=== PATIENT | female | born 1965 | race Caucasian/White ===

== ENCOUNTER 2020-04-29 05:14 | Inpatient (IN) ==
--- NOTE | 2020-04-01 11:32 | PAT Medication Instructions ---
Medication Instructions Date of Service April 01, 2020 Home Medications Control 1 tab PO DAILY aspirin [Aspirin Low-Strength] 81 mg PO QAM buprenorphine HCl 8 mg SUBLINGUAL TID cholecalciferol (vitamin D3) [Vitamin D3] 2,000 unit PO QAM duloxetine [Cymbalta] 60 mg PO QAM furosemide [Lasix] 20 - 40 mg PO DAILY PRN gabapentin 300 mg PO QID hydrochlorothiazide 25 mg PO QAM lisinopril 40 mg PO QAM methocarbamol [Robaxin] 750 mg PO QID PRN omeprazole 20 mg PO QAM potassium chloride 20 meq PO BID Continue as directed Control 1 tab PO DAILY (unless surgeon direct otherwise) buprenorphine HCl 8 mg SUBLINGUAL TID DO NOT take the morning of surgery cholecalciferol (vitamin D3) [Vitamin D3] 2,000 unit PO QAM furosemide [Lasix] 20 - 40 mg PO DAILY PRN hydrochlorothiazide 25 mg PO QAM lisinopril 40 mg PO QAM methocarbamol [Robaxin] 750 mg PO QID PRN potassium chloride 20 meq PO BID Take morning of surgery With a small sip of water, OTHERWISE NOTHING TO EAT OR DRINK AFTER MIDNIGHT: aspirin [Aspirin Low-Strength] 81 mg PO QAM duloxetine [Cymbalta] 60 mg PO QAM gabapentin 300 mg PO QID omeprazole 20 mg PO QAM Take evening before surgery furosemide [Lasix] 20 - 40 mg PO DAILY PRN (if needed) gabapentin 300 mg PO QID methocarbamol [Robaxin] 750 mg PO QID PRN (if needed) potassium chloride 20 meq PO BID Other Notes If you have any questions please call us at [phone] or [phone] or [phone] or [phone]
--- NOTE | 2020-04-03 13:07 | Anesthesiology Consultation ---
Date of Service April 03, 2020 Assessment & Plan (1) Encounter for pre-operative examination: - Preop CXR: Preop CXR report notes "2 cm right paramediastinal asymmetric density which projects over the medial right clavicular head. This may be calcified or represent a bone lesion. A pulmonary nodule is considered less likely but cannot be excluded. A chest CT is recommended. No acute cardiopulmonary findings." Awaiting response from PCP as well as surgeon-ordered PCP clearance. - Per assessment on 04/03: Travel screen- Lives in [place]. Uses PPE. No known COVID-19 positive contacts or current COVID-19 related symptoms. Surgeon arranging preop COVID testing. Awaiting results. - Check test AM DOS - Hx PONV: "severe"/improvement with scope patch in the past. Will order scope patch for AM DOS. - General anesthesia: patient concerned regarding SAB (hx back polly geries/hardware/issues). Discussed GA vs. SAB. Patient feels that she would prefer GA with PNB at this point but will discuss further AM DOS. Chart Review Chart Review: Patient seen in Pre Admission Testing Teaching & Discussion Pre-Anesthesia Teaching/Discussion Notes: Instructed NPO after midnight before surgery,except medications with 15 cc of water. Medication instructions provided according to the PAT guidelines. History Surgery Operation Date: 04/29/20 11:45 Proposed Procedures p Right Total Knee Arthroplasty - Ruel Posada MD Height/Weight Height: 5 ft 4 in Weight: 91.8 kg Allergies Allergy/AdvReac Type Severity Reaction Status Date / Time Penicillins Allergy Severe Anaphylaxis Verified 03/12/20 16:06 Medications Home Medications Medication Instructions Recorded Confirmed Last Taken Control 1 tab PO DAILY 03/12/20 03/12/20 Unknown aspirin [Aspirin Low-Strength] 81 mg PO QAM 03/12/20 03/12/20 Unknown buprenorphine HCl 8 mg SUBLINGUAL TID 03/12/20 03/12/20 Unknown cholecalciferol (vitamin D3) 2,000 unit PO QAM 03/12/20 03/12/20 Unknown [Vitamin D3] duloxetine [Cymbalta] 60 mg PO QAM 03/12/20 03/12/20 Unknown furosemide [Lasix] 20 - 40 mg PO DAILY PRN 03/12/20 03/12/20 Unknown gabapentin 300 mg PO QID 03/12/20 03/12/20 Unknown hydrochlorothiazide 25 mg PO QAM 03/12/20 03/12/20 Unknown lisinopril 40 mg PO QAM 03/12/20 03/12/20 Unknown methocarbamol [Robaxin] 750 mg PO QID PRN 03/12/20 03/12/20 Unknown omeprazole 20 mg PO QAM 03/12/20 03/12/20 Unknown potassium chloride 20 meq PO BID 03/12/20 03/12/20 Unknown Past Medical History Medical History (Updated 04/05/20 @ 08:13 by Lance Serna) Chronic back pain Degenerative disc disease DVT (deep venous thrombosis) remote hx at age 18 after traumatic injury Fibromyalgia GERD (gastroesophageal reflux disease) Hypertension Obesity Osteoarthritis Peptic ulcer disease hx Peripheral neuropathy Exercise / Class Metabolic Activity II 4-5 Yardwork/Stairs/Walk up hill Past Surgical History Surgical History History of adenoidectomy History of breast augmentation History of knee surgery right knee reconstruction History of open reduction and internal fixation (ORIF) procedure right tibia History of tonsillectomy S/P bunionectomy left S/P cervical spinal fusion ACDF (unsure of levels, possibly C3-C6), mild ROM limitations (specifically flexion) S/P foot surgery, left fusion with hardware (for foot fracture) during the bunionectomy surgery S/P foot surgery, left to repair a Myles Fracture with various hardware S/P foot surgery, right Pes planus repair (+ hardware) S/P lumbar spinal fusion Past Anesthesia History No Hx of Anesthesia Complications Sister: post-op BP issues, no similar issues for patient History of PONV History of PONV ("severe"- some improvement with scope patch) and Hx of Motion Sickness Social History Smoking Status: Current every day smoker tobacco type: cigarettes Smoking cigarettes per day: 10 (intermittent tobacco use x 4 years) Do You Dip or Chew Tobacco: No Hx Alcohol Use: No Hx Substance Use: No substance use type: does not use Review of Systems Patient denies chest pain, shortness of breath, dyspnea on exertion, fevers, chills, cough, wheezing, palpitations. Physical Exam Vital Signs VITALS BP 98/64 P 91 TEMP 98.5 SP02 98%RA RESP 16 PHYSICAL Decreased cervical extension s/p cervical fusion Full TMJ range of motion. TMD 3 finger breaths Mallampati Score 1 Dentition: lower partial, several missing upper teeth including left side, left side tooth loose (poor dentition) Lungs: clear throughout to auscultation Cardiac: regular rate and rhythm, no murmurs noted Spine: normal Carotid arteries: negative bruit Extremities: no edema Testing Laboratory Results 04/03/20 14:02 04/03/20 14:02 PT 10.1 Seconds (9.0-12.0) 04/03/20 14:02 INR 1.0 (0.9-1.1) 04/03/20 14:02 APTT 31.0 Seconds (21.0-31.0) 04/03/20 14:02 Hemoglobin A1c 6.1 % (4.5-5.6) H 04/03/20 14:02 Urine Color Yellow 04/03/20 14:02 Urine Appearance Clear (Clear) 04/03/20 14:02 Urine pH 6.5 (4.5-7.5) 04/03/20 14:02 Ur Specific [place] 1.014 (1.000-1.030) 04/03/20 14:02 Urine Protein Negative (Negative) 04/03/20 14:02 Urine Glucose (UA) Negative (Negative) 04/03/20 14:02 Urine Ketones Negative (Negative) 04/03/20 14:02 Urine Nitrite Negative (Negative) 04/03/20 14:02 Ur Leukocyte Esterase Negative (Negative) 04/03/20 14:02 Urine WBC (Auto) 1-5 /hpf (0-5) 04/03/20 14:02 Urine RBC (Auto) 5-10 /hpf (0-4) H 04/03/20 14:02 U Hyaline Cast (Auto) 1-5 /lpf (0-5) 04/03/20 14:02 U Epithel Cells (Auto) 10-20 /lpf (0-5) H 04/03/20 14:02 Urine Bacteria (Auto) Negative (Negative) 04/03/20 14:02 Blood Type O Positive 04/03/20 14:02 Antibody Screen NEGATIVE 04/03/20 14:02 Electrocardiogram Date: 04/03/20 Findings: + NSR @ (83) Chest X-Ray Date: 04/03/20 2 cm right paramediastinal asymmetric density which projects over the medial right clavicular head. This may be calcified or represent a bone lesion. A pulmonary nodule is considered less likely but cannot be excluded. A chest CT is recommended. No acute cardiopulmonary findings.
--- NOTE | 2020-04-03 14:35 | XRay Report ---
XR chest Pre-admission PA/Lat CLINICAL HISTORY: Preoperative evaluation. COMPARISON STUDY: None. FINDINGS: Lung volumes are normal. No consolidation is identified. Note is made of a 2 cm right yelena ediastinal asymmetric density which projects over the medial right clavicle. This may be calcified. T here is no pneumothorax or pleural effusion. Cardiac size is normal. Mediastinal contours are normal. There is no evidence for pulmonary edema. Incidental note is made of postoperative findings within t he cervical spine. IMPRESSION: 1. 2 cm right paramediastinal asymmetric density which projects over the medial right clavicular head . This may be calcified or represent a bone lesion. A pulmonary nodule is considered less likely but cannot be excluded. A chest CT is recommended. 2. No acute cardiopulmonary findings. ACT 112: Positive. There are findings on this exam that require communication between the performing entity and the patient following Patient Test Result Information Act ([place] Act 112) guidelines. Electronically signed by: Pipo Khan M.D. 04/03/2020 2:34 PM
[2020-04-03 15:22] LABS: Basophils # (auto) 0.04 K/uL (0-0.2); Basophils % (auto) 0.5 %; Eosinophils % (auto) 2.3 %; Hematocrit (blood only) 40.2 % (37-47); Hemoglobin 13.4 g/dL (12.0-16.0); Immature Granulocytes # (auto) 0.01 K/uL (0.00-0.02); Immature Granulocytes % (auto) 0.1 %; Lymphocytes # (auto) 2.87 K/uL (1.2-3.4); Lymphocytes % (auto) 32.9 %; Mean Corpuscular Hemoglobin 30.2 pg (25-34); Mean Corpuscular Hgb Conc 33.3 g/dL (32-36); Mean Corpuscular Volume 90.7 fL (80-100); Mean Platelet Volume 10.3 fL (7.4-10.4); Monocytes # (auto) 0.44 K/uL (0.11-0.59); Neutrophils # (auto) 5.16 K/uL (1.4-6.5); Neutrophils % (auto) 59.2 %; Platelet Count 334 K/uL (130-400); RDW Standard Deviation 46.4 fL (36.4-46.3); Red Blood Count 4.43 M/uL (4.2-5.4); White Blood Count 8.72 K/uL (4.8-10.8)
[2020-04-03 15:24] LABS: Albumin Level 4.1 gm/dl (3.4-5.0); BUN Creatinine Ratio 16.2 (10-20); Calcium 9.1 mg/dl (8.5-10.1); Creatinine Clr Calc Pharmacy 76.9 ml/min; Est GFR (African American) 80.8; Est GFR (Non-African American) 69.8; Potassium 3.4 mmol/L (3.5-5.1)
[2020-04-03 15:29] LABS: Appearance Urine Clear (Clear); Bacteria Urine Automated Negative (Negative); Bilirubin Urine Negative (Negative); Blood Urine Trace (Negative); Color Urine Yellow; Glucose Urine UA Negative (Negative); Ketones Urine Negative (Negative); Leukocyte Esterase Urine Negative (Negative); Nitrite Urine Negative (Negative); Protein Urine Negative (Negative); Specific Gravity Urine 1.014 (1.000-1.030); Urobilinogen Urine Negative (Negative); pH Urine 6.5 (4.5-7.5)
[2020-04-03 15:30] LABS: Partial Thromboplastin Ratio 1.1; Prothrombin Time 10.1 Seconds (9.0-12.0)
[2020-04-04 06:18] LABS: Estimated Average Glucose 128 mg/dl; Hemoglobin A1C 6.1 % (4.5-5.6)
--- NOTE | 2020-04-04 11:00 | Electrocardiogram Report ---
Test Reason : Blood Pressure : / mmHG Vent. Rate : 083 BPM Atrial Rate : 083 BPM P-R Int : 146 ms QRS Dur : 082 ms QT Int : 360 ms P-R-T Axes : 075 080 066 degrees QTc Int : 423 ms Normal sinus rhythm Normal ECG No previous ECGs available Confirmed by Max Howard ([id number]) on 04/04/2020 10:59:41 AM Referred By: Ruel Posada Confirmed By:Blayne Howard
--- NOTE | 2020-04-05 08:18 | History & Physical Report ---
Date of Service April 05, 2020 Assessment & Plan (1) Primary osteoarthritis of right knee: Patient with severe endstage osteoarthritis right knee. Treatment options discussed. She has failed conservative measures as above. She has significant bone loss and at risk for further bone loss with any delay in surgical intervention. Risks, benefits and alternatives to surgery including but not limited to infection, DVT, pain, stiffness, need for revision surgery, damage to blood vessels, damage to nerves, PE, , were discussed with the patient and they wish to proceed. Plan will be for right total knee arthroplasty at [facility] on 04/29/[address] Posada. She may need stabilized polyethylene component to deal with chronic MCL laxity and a stemmed tibial component to help with stability. She is on chronic pain medication but is weaning off of her buprenorphine and orthopedics will manage her post operative pain medication. Will plan on aspirin 81mg BID x 1 mo post operatively for DVT prophylaxis. Will plan on home health PT post discharge. All questions answered. She will follow up post operatively. History of Present Illness Chief Complaint: Right knee pain Primary Care Provider: NO PCP 54yo female with PMHx significant for HTN, GERD, every day smoker, and chronic pain on chronic narcotic pain medication who presents with longstanding right knee pain and severe osteoarthritis. Pain is interfering with her ability to carry out daily activities. She has difficulty ambulating and is falling due to her knee pain. She has failed conservative measures including oral and topical NSAIDs, viscoelastic injections, and cortisone injections, knee bracing, and therapy. She would like to proceed with knee replacement. Patient denies he adaches, sweats, fevers, chills, double vision, blurred vision, cough, sore throat, dysphagia, chest pain, sob, wheezing, n/v/d/c, numbness, tingling, fatigue, urinary symptoms, mood disorders. ROS positive for right knee pain and stiffness. Allergies Allergy/AdvReac Type Severity Reaction Status Date / Time Penicillins Allergy Severe Anaphylaxis Verified 03/12/20 16:06 Home Medications Medication Instructions Recorded Confirmed Type Control 1 tab PO DAILY 03/12/20 03/12/20 History aspirin [Aspirin Low-Strength] 81 mg PO QAM 03/12/20 03/12/20 History buprenorphine HCl 8 mg SUBLINGUAL TID 03/12/20 03/12/20 History cholecalciferol (vitamin D3) 2,000 unit PO QAM 03/12/20 03/12/20 History [Vitamin D3] duloxetine [Cymbalta] 60 mg PO QAM 03/12/20 03/12/20 History furosemide [Lasix] 20 - 40 mg PO DAILY PRN 03/12/20 03/12/20 History gabapentin 300 mg PO QID 03/12/20 03/12/20 History hydrochlorothiazide 25 mg PO QAM 03/12/20 03/12/20 History lisinopril 40 mg PO QAM 03/12/20 03/12/20 History methocarbamol [Robaxin] 750 mg PO QID PRN 03/12/20 03/12/20 History omeprazole 20 mg PO QAM 03/12/20 03/12/20 History potassium chloride 20 meq PO BID 03/12/20 03/12/20 History Past Med/Surg History Medical History (Updated 04/05/20 @ 08:13 by Lance Serna) Chronic back pain Degenerative disc disease DVT (deep venous thrombosis) remote hx at age 18 after traumatic injury Fibromyalgia GERD (gastroesophageal reflux disease) Hypertension Obesity Osteoarthritis Peptic ulcer disease hx Peripheral neuropathy Surgical History History of adenoidectomy History of breast augmentation History of knee surgery right knee reconstruction History of open reduction and internal fixation (ORIF) procedure right tibia History of tonsillectomy S/P bunionectomy left S/P cervical spinal fusion ACDF (unsure of levels, possibly C3-C6), mild ROM limitations (specifically flexion) S/P foot surgery, left fusion with hardware (for foot fracture) during the bunionectomy surgery S/P foot surgery, left to repair a Myles Fracture with various hardware S/P foot surgery, right Pes planus repair (+ hardware) S/P lumbar spinal fusion Social History Smoking Status: Current every day smoker Cigarettes Per Day: 10 (intermittent tobacco use x 4 years); Second Hand Exposure: Yes; Do You Dip or Chew Tobacco: No; Tobacco Cessation Education Requested by Patient: No Hx Alcohol Use: No Hx Substance Use: No Preferred Language: Cypriot Communication Ability: Effective Turnaround Engineer Required: No Beliefs That Will Affect Care: None Current Living Situation: Spouse Other Information That Helps Us Care for You: No Feels Safe at Home: Yes Safety Concerns: Feels Safe At This Time Assistive Devices: Cane and Glasses Assistive Devices Comment: lower partial Review of Systems All systems reviewed & are unremarkable except as noted in HPI & below Physical Exam Constitutional: well developed and well nourished; no acute distress Eyes: PERRL, conjunctivae normal, anicteric sclerae ENMT: external ear and nose normal, oropharynx normal Neck: trachea midline, no thyromegaly Respiratory: normal respiratory effort, lungs clear to auscultation Cardiovascular: RRR, no murmur, no edema Musculoskeletal: Right knee: Valgus alignment with tenderness lateral joint line, mild effusion. Positive valgus stress, positive Saud's, positive tiana's. ROM 0-90 degrees. Varus stress does correct deformity. Crepitation noted with ROM. Skin: no rashes, warm and dry Neurologic: patellar DTR's 2+ bilat, sensation intact Psychiatric: A+Ox3, euthymic affect Results & Data ([place]) Laboratory Results Lab Results 04/03/20 04/03/20 04/03/20 Range/Units 14:02 14:02 14:02 WBC 8.72 (4.8-10.8) K/uL RBC 4.43 (4.2-5.4) M/uL Hgb 13.4 (12.0-16.0) g/dL Hct 40.2 (37-47) % MCV 90.7 (80-100) fL MCH 30.2 (25-34) pg MCHC 33.3 (32-36) g/dL RDW Std Deviation 46.4 H (36.4-46.3) fL RDW Coeff of Tl 14.0 (11.5-14.5) % Plt Count 334 (130-400) K/uL MPV 10.3 (7.4-10.4) fL Immature Gran % (Auto) 0.1 % Neut % (Auto) 59.2 % Lymph % (Auto) 32.9 % [place] % (Auto) 5.0 % Eos % (Auto) 2.3 % Baso % (Auto) 0.5 % Neut # (Auto) 5.16 (1.4-6.5) K/uL Lymph # (Auto) 2.87 (1.2-3.4) K/uL [place] # (Auto) 0.44 (0.11-0.59) K/uL Eos # (Auto) 0.20 (0-0.5) K/uL Baso # (Auto) 0.04 (0-0.2) K/uL Immature Gran # (Auto) 0.01 (0.00-0.02) K/uL PT 10.1 (9.0-12.0) Seconds INR 1.0 (0.9-1.1) APTT 31.0 (21.0-31.0) Seconds PTT Ratio 1.1 Sodium 137 (136-145) mmol/L Potassium 3.4 L (3.5-5.1) mmol/L Chloride 99 (98-107) mmol/L Carbon Dioxide 37 H (21-32) mmol/L Anion Gap 1.0 L (3-11) BUN 15 (7-18) mg/dl Creatinine 0.94 (0.6-1.2) mg/dl Est Cr Clr Drug Dosing 76.9 ml/min Est GFR ( Amer) 80.8 Est GFR (Non-Af Amer) 69.8 BUN/Creatinine Ratio 16.2 (10-20) Glucose 90 (70-99) mg/dl Estimat Average Glucose mg/dl Hemoglobin A1c (4.5-5.6) % Calcium 9.1 (8.5-10.1) mg/dl Albumin 4.1 (3.4-5.0) gm/dl Urine Color Urine Appearance (Clear) Urine pH (4.5-7.5) Ur Specific [place] (1.000-1.030) Urine Protein (Negative) Urine Glucose (UA) (Negative) Urine Ketones (Negative) Urine Blood (Negative) Urine Nitrite (Negative) Urine Bilirubin (Negative) Urine Urobilinogen (Negative) Ur Leukocyte Esterase (Negative) Urine WBC (Auto) (0-5) /hpf Urine RBC (Auto) (0-4) /hpf U Hyaline Cast (Auto) (0-5) /lpf U Epithel Cells (Auto) (0-5) /lpf Urine Bacteria (Auto) (Negative) Blood Type Antibody Screen 04/03/20 04/03/20 04/03/20 Range/Units 14:02 14:02 14:02 WBC (4.8-10.8) K/uL RBC (4.2-5.4) M/uL Hgb (12.0-16.0) g/dL Hct (37-47) % MCV (80-100) fL MCH (25-34) pg MCHC (32-36) g/dL RDW Std Deviation (36.4-46.3) fL RDW Coeff of Tl (11.5-14.5) % Plt Count (130-400) K/uL MPV (7.4-10.4) fL Immature Gran % (Auto) % Neut % (Auto) % Lymph % (Auto) % [place] % (Auto) % Eos % (Auto) % Baso % (Auto) % Neut # (Auto) (1.4-6.5) K/uL Lymph # (Auto) (1.2-3.4) K/uL [place] # (Auto) (0.11-0.59) K/uL Eos # (Auto) (0-0.5) K/uL Baso # (Auto) (0-0.2) K/uL Immature Gran # (Auto) (0.00-0.02) K/uL PT (9.0-12.0) Seconds INR (0.9-1.1) APTT (21.0-31.0) Seconds PTT Ratio Sodium (136-145) mmol/L Potassium (3.5-5.1) mmol/L Chloride (98-107) mmol/L Carbon Dioxide (21-32) mmol/L Anion Gap (3-11) BUN (7-18) mg/dl Creatinine (0.6-1.2) mg/dl Est Cr Clr Drug Dosing ml/min Est GFR ( Amer) Est GFR (Non-Af Amer) BUN/Creatinine Ratio (10-20) Glucose (70-99) mg/dl Estimat Average Glucose 128 mg/dl Hemoglobin A1c 6.1 H (4.5-5.6) % Calcium (8.5-10.1) mg/dl Albumin (3.4-5.0) gm/dl Urine Color Yellow Urine Appearance Clear (Clear) Urine pH 6.5 (4.5-7.5) Ur Specific [place] 1.014 (1.000-1.030) Urine Protein Negative (Negative) Urine Glucose (UA) Negative (Negative) Urine Ketones Negative (Negative) Urine Blood Trace H (Negative) Urine Nitrite Negative (Negative) Urine Bilirubin Negative (Negative) Urine Urobilinogen Negative (Negative) Ur Leukocyte Esterase Negative (Negative) Urine WBC (Auto) 1-5 (0-5) /hpf Urine RBC (Auto) 5-10 H (0-4) /hpf U Hyaline Cast (Auto) 1-5 (0-5) /lpf U Epithel Cells (Auto) 10-20 H (0-5) /lpf Urine Bacteria (Auto) Negative (Negative) Blood Type O Positive Antibody Screen NEGATIVE Diagnostic Findings Right knee radiographs: Bone on bone lateral compartment with significant bone loss. Has osteophyte formation lateral tibial plateau and lateral femoral condyle with subchondral sclerosis, moderate degenerative changes patellofemoral compartment.
[2020-04-29] MEDS ORDERED: FAMOTIDINE 20 MG TAB PO SCH (06:00)
[2020-04-29] MEDS ORDERED: dexAMETHasone 4 MG TAB PO SCH (06:00)
[2020-04-29] MEDS ORDERED: ACETAMINOPHEN 500 MG TAB PO SCH (06:00)
[2020-04-29] MEDS ORDERED: METOCLOPRAMIDE HCL 10 MG TABLET PO SCH (06:00)
[2020-04-29] MEDS ORDERED: CeleBREX 200 MG CAP PO SCH (06:00)
[2020-04-29] MEDS ORDERED: LR 500ML BOLUS, THEN 15ML/HR IV SCH (06:00)
[2020-04-29] MEDS ORDERED: GABAPENTIN 900 MG DOSE PO SCH (06:00)
[2020-04-29] MEDS ORDERED: VANCOMYCIN HCL 1,500 MG in SODIUM CHLORIDE 0.9% 500 ML IV SCH ×2 (06:00→18:00)
[2020-04-29] MEDS ORDERED: ROPIVACAINE 0.5% HCL/PF 150 MG, BUPIVACAINE 0.75% MPF 20 ML, EPINEPHrine 30MG/30ML (OR ... INSTIL SCH (06:00)
[2020-04-29] MEDS ORDERED: ROPIVACAINE 0.5% 5 MG/ML 30 ML VIAL ONE (06:29)
[2020-04-29] MEDS ORDERED: BUPIVACAINE 0.5 % 5 MG/1 ML PF 10ML VIAL ONE (06:29)
[2020-04-29] MEDS ORDERED: fentaNYL citrate 100 MCG/2 ML VIAL ONE (06:32)
[2020-04-29] MEDS ORDERED: MIDAZOLAM HCL 1 MG/ML 2ML VIAL ONE ×2 (06:32→07:10)
[2020-04-29] MEDS ORDERED: BACITRACIN INJ 50,000 UNIT VIAL ONE (06:39)
[2020-04-29] MEDS ORDERED: ORTHO JOINT ANESTHETIC ONE (06:39)
[2020-04-29] MEDS ORDERED: ATROPINE SULFATE 0.1 MG/ML 10ML SYR IV PRN (07:01)
[2020-04-29] MEDS ORDERED: PROMETHAZINE HCL 6.25 MG in SODIUM CHLORIDE 0.9% 50 ML IV PRN (07:01)
[2020-04-29] MEDS ORDERED: HYDROmorphone INJ 1 MG/ML SYRINGE IV PRN (07:01)
[2020-04-29] MEDS ORDERED: ONDANSETRON INJ 2 MG/ML 2 ML VIAL IV PRN (07:01)
[2020-04-29] MEDS ORDERED: KETOROLAC 30 MG/ML VIAL IV PRN (07:01)
--- NOTE | 2020-04-29 07:04 | History & Physical Bridge Note ---
Date of Service April 29, 2020 History & Physical Bridge Note I have examined the patient, reviewed the History & Physical and in the interval since the performance of the History & Physical I have noted the following changes of clinical significance: no changes noted
[2020-04-29] MEDS ORDERED: LIDOCAINE HCL 2% 2 ML VIAL/AMP(20MG/ML) INFIL ONE (07:40)
[2020-04-29] MEDS ORDERED: PHENYLEPHRINE 100MCG/ML 5ML SYR ONE (07:42)
[2020-04-29] MEDS ORDERED: ePHEDrine sulfate 50 MG/ML AMP ONE (07:42)
[2020-04-29] MEDS ORDERED: ePHEDrine sulfate 50 MG/ML SYR ONE (07:42)
[2020-04-29] MEDS ORDERED: PHENYLEPHRINE HCL 10 MG/ML VIAL ONE (08:07)
--- NOTE | 2020-04-29 09:40 | Post Operative Brief Note ---
Immediate Post Op Note v1 Date of Surgery April 29, 2020 Pre & Post Diagnosis Operation Date: 04/29/20 07:00 Pre-Op Diagnosis: Unilateral Primary Osteoarthritis, Right Knee Post-Op Diagnosis: Unilateral Primary Osteoarthritis, Right Knee I identified the patient and participated in the time-out.: Yes Procedure Operation Date: 04/29/20 07:00 Actual Procedures p Right Total Knee Arthroplasty(Right), superficial wound VAC- Ruel Posada MD Surgeon Ruel Posada MD Supervisor Paper Coating Daquan HELLER Estimated Blood Loss 10 Findings Consistent with Post-Op Diagnosis Specimens Bone cuts Drains Hemovac Drain (10 fr dual trocar) Anesthesia Type MAC Spinal Regional Complications none Disposition Accompanied Patient To Recovery: No Disposition: Recovery Room Overlapping Procedure I was immediately available: during the entire case.
--- NOTE | 2020-04-29 09:56 | Operative Report ---
Post Operative Report Pre & Post Diagnosis Operation Date: 04/29/20 07:00 Pre-Op Diagnosis: Unilateral Primary Osteoarthritis, Right Knee Post-Op Diagnosis: Unilateral Primary Osteoarthritis, Right Knee I identified the patient and participated in the time-out.: Yes Procedure Operation Date: 04/29/20 07:00 Actual Procedures p Right Total Knee Arthroplasty(Right) ,superficial wound VAC- Ruel Posada MD Surgeon Ruel Posada MD [employer] Daquan EHLLER Estimated Blood Loss 10 Findings Consistent with Post-Op Diagnosis Specimens Bone cuts Drains 2 Hemovac Anesthesia Type MAC Spinal Regional Complications none Disposition Accompanied Patient To Recovery: No Disposition: Recovery Room Indications 54-year-old female with chronic progressive osteoarthritis in her knee. Patient has severe osteoarthritis with marked valgus alignment of her knee [id number] with bone loss in the lateral compartment hypoplastic lateral femoral condyle tricompartmental disease. Old medial longitudinal scar from old surgery. Description of Procedure Patient taken to the operating room the size under MAC spinal regional anesthesia. Patient was placed supine on the operating table. A pneumatic tourniquet was placed about the right upper thigh. The right lower extremity was prepped and draped in sterile fashion. Knee exam demonstrated along medial longitudinal scar a moderately large knee effusion some chronic edema in the calf and leg. Bunion deformity of the foot. Flexion contracture 20 degrees knee flexion to 120 degrees with valgus stress knee collapses into valgus due to bone loss and MCL laxity knee partially correctable to neutral with varus stress. The leg was elevated exsanguinated with an Esmarch bandage and pneumatic tourniquet was raised to 325 millimeters of mercury. Skin incised sharply in longitudinal fashion. Subcutaneous flaps elevated. Incision was made through the medial retinaculum extending up in the mid third of the quadriceps tendon and down to the medial tibial tubercle. Intra-articular findings demonstrated severe tricompartmental osteoarthritis. There was hypoplastic lateral femoral condyle with significant bone loss lateral compartment posterior laterally. The ACL was chronically torn. Patient was [id number] trochlear groove and medially as well. There were circumferential patellar osteophytes.. The Simplilearn triathlon total knee arthroplasty system was used. To expose the knee the infrapatellar fat pad was resected. The meniscal remnants and posterior cruciate ligament were resected. The anterior fat pad over the femur in the area of the anterior flange of the femoral component was resected. Lateral synovial bands release. Large notch osteophytes were resected with a curved osteotome. The femur was exposed. An intramedullary drill hole was made into the canal. A intramedullary flexible guide isidro was placed. Distal femoral cutting guide was adjusted to resect a 6 degree valgus cut with 10 millimeters distal femur resected this resected the bone to the sulcus. The knee was extended and a subperiosteal peel lateral release was performed around the patella. Patella width was measured and width was reproduced using a freehand cut technique and a 31 symmetrical patella component. The 3 drill holes were made and the excess lateral facet was beveled off to prevent any impingement. Attention was taken back to the femur which was exposed with retractors and the femoral sizing guide was pinned in position. The drill holes were placed in 3 of external rotation to match epicondylar axis. Some adjustments were made to the hypoplastic femoral condyle and the epicondylar axis and Whitesides line were marked to get the appropriate alignment of the cutting guide. Femur sized for a 4 posterior stabilized component. The 4-in-1 cutting block was placed and then the anterior posterior and chamfer cuts are made. The tibia was then subluxed. The external tibial cutting guide was just to make a perpendicular cut to the long axis of the tibia at the level of the most deficient bone loss side laterally. A lamina greens cutter was used and the flexion extension gaps were balanced. This required a IT band release off the tibia lateral capsule release and release of the popliteus tendon. All posterior osteophytes removed. All meniscal remnants were resected. The tibia exposed and the trial tibial component size 4 was externally rotated in line with the tibial tubercle and pinned in position. The drill and punch for stem was used. The notch cutting device was centered appropriately and the femoral notch cut was made. The femoral trial was inserted. Trial tibial inserts were placed and size 13 posterior stabilized TS constrained gave balanced ligaments through flexion and extension. Patella tracking was assessed. The patella tracked with some slight liftoff laterally so formal lateral release was performed releasing the lateral retinaculum leaving as much of the synovium intact as possible. Patella tracks centrally at this point.. The trial components were then removed and the orthomix anesthetic cocktail was injected per protocol. The knee was then copiously irrigated with pulsatile lavage antibiotic solution. Final components were then cemented with Simplex cement. Final components were triathlon posterior stabilized size 4 femoral component with femoral distal fixation pegs. Size 4 universal tibial baseplate with a 50 mm length 12 mm diameter cemented stem. The size 413 mm TS tibial polyethylene with metal reinforcement post, 31 x 9 mm symmetrical patella. After the cement cured the Betadine soak was used per protocol. further pulsatile lavage irrigation performed and 2 Hemovac drains were brought out laterally. The quadriceps tendon and medial retinaculum were closed with figure of 8 #1 Vicryl sutures. The knee was taken through full range of motion and the repair was secure. The subcutaneous tissues were closed with 2-0 Vicryl sutures. Skin was closed with leonela. A niall and Acticoat superficial wound VAC was applied. Patient procedure well. Daquan HELLER was my physician assistant maintenance manager who assisted in patient positioning prepping and draping,leg positioning ,soft tissue retraction and instrument management and participated in the closing and will participate in postoperative care of the patient. The patient tolerated the procedure well. I attest to the content of the Intraoperative Record and any orders documented therein. Any exceptions are noted below.
[2020-04-29] MEDS: PHENYLEPHRINE 100MCG/ML 5ML SYR IV PRN ×6 (10:11→11:40)
--- NOTE | 2020-04-29 10:22 | XRay Report ---
XR knee RT 1 or 2V routine HISTORY: 54 years-old Female Surgical Post Op right knee total joint arthroplasty COMPARISON: None TECHNIQUE: 2 views of the right knee FINDINGS: Hinged right knee total joint arthroplasty appears to be in satisfactory alignment. No acute fracture or unexpected opaque foreign body. Anterior midline skin leonela are noted along with expected posts urgical soft tissue swelling and deep tissue air with surgical drainage catheter. IMPRESSION: Right knee total joint arthroplasty with expected postoperative changes. ACT 112: Negative or not required by law. The above report was generated using voice recognition software. It may contain grammatical, syntax o r spelling errors. Electronically signed by: Dom Garcia M.D. 04/29/2020 10:20 AM
[2020-04-29] MEDS: ePHEDrine sulfate 50 MG/ML AMP IV PRN ×5 (10:38→11:30)
[2020-04-29] MEDS ORDERED: VANCOMYCIN CONSULT ACTIVE PRN (12:34)
[2020-04-29] MEDS ORDERED: FUROSEMIDE 20 MG TAB PO PRN (12:34)
--- NOTE | 2020-04-29 13:01 | Anesthesiology Progress Note ---
Date of Service April 29, 2020 Anesthesia Post Procedure Vital Signs Vital Signs: Temp Pulse Pulse Resp BP Pulse Ox 04/29/20 12:15 36.4 C L 94 H 17 94/50 L 98 04/29/20 12:05 97 H 14 93/53 L 98 04/29/20 11:55 91 H 14 93/55 L 97 04/29/20 11:45 90 17 98/53 L 97 04/29/20 11:35 86 17 97/51 L 97 04/29/20 11:25 86 14 90/56 L 97 04/29/20 11:15 88 17 102/55 L 97 04/29/20 11:05 85 17 97/52 L 96 04/29/20 10:55 87 17 94/56 L 95 04/29/20 10:45 86 18 95/53 L 95 04/29/20 10:35 82 15 85/55 L 98 04/29/20 10:25 82 17 89/53 L 98 04/29/20 10:15 82 15 94/59 L 93 04/29/20 10:05 82 15 89/51 L 94 04/29/20 09:55 84 18 102/47 L 100 04/29/20 09:47 36.6 C 89 20 110/64 98 04/29/20 05:52 36.9 C 77 16 116/70 96 Pain Intensity Right Leg: Pain Intensity: 8 Transfer of Care Handoff Completed per policy Notes Mental Status: alert / awake / arousable Patient Amnestic to Procedure: Yes Nausea / Vomiting: adequately controlled Pain: adequately controlled Airway Patency, RR, SpO2: stable & adequate BP & HR: stable & adequate Hydration State: stable & adequate Neuraxial Anesthesia: was administered and sensory block is resolving Anesthetic Complications: no major complications apparent
[2020-04-29] MEDS: GABAPENTIN 300 MG CAP PO SCH ×3 (14:14→21:32)
[2020-04-29] MEDS: ACETAMINOPHEN 500 MG TAB PO SCH ×2 (14:26→21:34)
[2020-04-29] MEDS: SODIUM CHLORIDE 0.9% 1000ML 1,000 ML IV SCH ×2 (14:27→18:46)
[2020-04-29] MEDS: POTASSIUM CHLORIDE CRTAB 20 MEQ TABCR PO SCH ×2 (14:27→21:31)
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
[2020-04-29] MEDS ORDERED: SODIUM CHLORIDE 0.9% 1000ML 500 ML IV ONE (15:52)
[2020-04-29] MEDS: oxyCODONE HCL IR 5 MG TAB (IMMEDIATE RELEASE) PO PRN ×2 (15:57→20:25)
[2020-04-29] MEDS: Scopolamine CHECK PATCH PLACEMENT SCH (15:58)
[2020-04-29 16:08] LABS: Hematocrit (blood only) 29.6 % (37-47); Hemoglobin 9.6 g/dL (12.0-16.0)
[2020-04-29 16:31] LABS: BUN Creatinine Ratio 12.6 (10-20); Calcium 8.7 mg/dl (8.5-10.1); Creatinine Clr Calc Pharmacy 69.5 ml/min; Est GFR (African American) 71.5; Est GFR (Non-African American) 61.7; Potassium 4.1 mmol/L (3.5-5.1)
[2020-04-29] MEDS ORDERED: HYDROmorphone INJ 0.5 MG/0.5 ML SYR IV STA (16:33)
[2020-04-29] MEDS ORDERED: SODIUM CHLORIDE 0.9% 250 ML IV PRN (16:33)
[2020-04-29] MEDS: KETOROLAC 30 MG/ML VIAL IV SCH (18:47)
[2020-04-29] MEDS: HYDROmorphone INJ 0.5 MG/0.5 ML SYR IV PRN (21:27)
[2020-04-29] MEDS: ASPIRIN 81 MG ECTAB PO SCH (21:32)
[2020-04-30] MEDS: KETOROLAC 30 MG/ML VIAL IV SCH ×3 (00:10→12:01)
[2020-04-30] MEDS: Scopolamine CHECK PATCH PLACEMENT SCH ×5 (00:11→22:17)
[2020-04-30] MEDS: oxyCODONE HCL IR 5 MG TAB (IMMEDIATE RELEASE) PO PRN ×4 (01:41→17:06)
[2020-04-30] MEDS: ACETAMINOPHEN 500 MG TAB PO SCH ×3 (05:41→21:49)
[2020-04-30 06:24] LABS: Hematocrit (blood only) 23.1 % (37-47); Hemoglobin 7.5 g/dL (12.0-16.0); Mean Corpuscular Hemoglobin 29.5 pg (25-34); Mean Corpuscular Hgb Conc 32.5 g/dL (32-36); Mean Corpuscular Volume 90.9 fL (80-100); Mean Platelet Volume 9.9 fL (7.4-10.4); Platelet Count 209 K/uL (130-400); RDW Coefficient of Variation 14.1 % (11.5-14.5); RDW Standard Deviation 47.2 fL (36.4-46.3); Red Blood Count 2.54 M/uL (4.2-5.4)
[2020-04-30] MEDS: METHOCARBAMOL 750 MG TABLET PO PRN ×3 (06:24→21:49)
[2020-04-30 06:52] LABS: BUN Creatinine Ratio 18.7 (10-20); Calcium 8.7 mg/dl (8.5-10.1); Creatinine Clr Calc Pharmacy 87.1 ml/min; Est GFR (Non-African American) 81.1; Potassium 4.7 mmol/L (3.5-5.1)
--- NOTE | 2020-04-30 07:30 | Orthopedic Progress Note ---
Date of Service April 30, 2020 Assessment & Plan (1) Primary osteoarthritis of right knee: POD#1 right TKA -PT/OT -Pain management-having a lot of pain. Was on chronic pain medication preop. Will get pain management consult for recommendations for post op pain control. -DVT prophylaxis-ASA 81mg BID, SCDs, TEDs -AM labs-Creatinine at baseline. Hemoglobin 7.5-acute blood loss anemia due to surgical loss and dilutional effect. Transfuse 1 u PRBC. Recheck labs. -D/C planning-home with home health PT when stable, likely tomorrow. Admission and Anticipated Discharge Date Admission Date: April 29, 2020 Subjective POD#1 right TKA. Patient resting in bed, currently comfortable. Having a lot of pain, mostly in calf region. Did have doppler 2 days ago for calf pain, negative for DVT. She denies chest pain, sob, light headedness, dizziness, n/v/d. BP is running low. Review of Systems Review of Systems: All systems reviewed & are unremarkable except as noted in HPI & below Physical Exam Physical Exam: Right leg dressing is c/d/i. ELISHA in place and suctioning, hemovac intact. Toes are mobile with good dorsiflexion. Mild calf tenderness. Distally n/v status and sensation are intact. Constitutional: well developed and well nourished; no acute distress Results & Data ([facility]) Vital Signs (Past 12 Hours) Vital Signs Temp Pulse Resp BP Pulse Ox 04/30/20 03:59 36.7 C 81 16 92/59 L 100 04/29/20 23:36 36.7 C 80 16 91/59 L 100 Laboratory Results H & H 04/03/20 04/29/20 04/30/20 Range/Units 14:02 15:42 05:52 Hgb 13.4 9.6 L 7.5 L (12.0-16.0) g/dL Hct 40.2 29.6 L 23.1 L (37-47) % Coagulation 04/03/20 Range/Units 14:02 INR 1.0 (0.9-1.1)
[2020-04-30] MEDS: CHOLECALCIFEROL 1,000 UNITS 25 MCG TAB PO SCH (08:21)
[2020-04-30] MEDS: DULoxetine HCL 60 MG CAP PO SCH (08:21)
[2020-04-30] MEDS: PANTOprazole 40 MG TAB PO SCH (08:21)
[2020-04-30] MEDS: ASPIRIN 81 MG ECTAB PO SCH ×2 (08:21→20:49)
[2020-04-30] MEDS: POTASSIUM CHLORIDE CRTAB 20 MEQ TABCR PO SCH ×3 (08:22→20:49)
[2020-04-30] MEDS: GABAPENTIN 300 MG CAP PO SCH ×4 (08:22→20:49)
--- NOTE | 2020-04-30 08:31 | Pain Management Consultation ---
Date of Consultation April 30, 2020 Assessment & Plan (1) History of total knee arthroplasty: (2) Primary osteoarthritis of right knee: Present on Admission?: Yes (3) Opioid dependence in controlled environment: Present on Admission?: Yes (4) Chronic pain: * Patient with chronic opiate dependency followed by pain management in [place] with Dr. Gramajo. PDMP was reviewed which revealed chronic pr escribing of buprenorphine 8 mg tablets sublingually #90/month with most recent prescription filled on 03/30/2020. Patient also had prescription filled for oxycodone/acetaminophen 10/325 mg #30 filled on 04/22/2020. Patient was appropriately weaned off of buprenorphine presurgically per her report and transitioned to oxycodone/acetaminophen in which the patient had reported 6 tablets daily. * Would recommend continuing with OxyIR 10 mg every 4 hours as needed upon this admission to assess efficacy/tolerability for discharge planning. Would likely recommend OxyIR 10 mg every 4 hours in the postsurgical timeframe with reevaluation with her outpatient pain management team in 2 weeks, who is re portedly planning to transition her back to buprenorphine. * Would recommend patient have Narcan available upon discharge * Consider addition of stool softener versus MiraLAX * We discussed limited utilization of IV hydromorphone during this admission due to pain not well controlled with OxyIR and she verbalized understanding Thank you for allowing us to participate in the care of Mrs. Toney. Present on Admission?: Yes History of Present Illness Reason for Consultation: Postoperative pain management status post right TKA Requesting Physician: Ruel Posada MD Attending Physician: Ruel Posada MD History of Present Illness Mrs. Toney is a 54-year-old white female who was admitted and underwent a right TKA due to chronic right-sided knee pain and end-stage osteoarthritis yesterday on 04/29/2020. Patient has a longstanding history of multiple orthopedic and cervical/lumbar spine surgeries in her past history and chronic opioid utilization over the past 5-7 years. The patient was reportedly transitioned off of opiates and onto buprenorphine approximately 18-24 months ago. She was utilizing buprenorphine 24 mg daily, which she reported was managing her pain well. She then reportedly weaned off buprenorphine leading up to her current surgery discontinuing the buprenorphine approximately 1 week ago. She was then reportedly started on oxycodone/acetaminophen 10/325 mg reportedly utilizing 6 tablets daily. She reported acute right-sided calf pain the day prior to her surgery which led [place] emergent [place] near [place]. Extensive diagnostic evaluation revealed no evidence of DVT and she went through with her surgery yesterday on 04/29/[address] Posada. Patient is reporting minimal discomfort of the knee at this time with improved range of motion. She continues to have pain in the calf area as her predominant pain generator. Patient reports the pain is aching and occasionally sharp. She is finding oxycodone 10 mg to be moderately effective at "taking the edge off" of her pain. She is reporting tolerating medication without complications. She denies any chronic history of constipation and reported bowel movement the day prior to her surgery. Patient indicates that her outpatient pain management physician has a plan to transition her back to buprenorphine in the postsurgical timeframe, but was recommending her orthopedic surgeon manage her postoperative pain. Patient reports no further constitutional complaints at this time. Pain Assessment Full Body Front + Back: 1. Right calf pain 2. Right knee pain status post TKA Pain scale - at its best (0-10): 4 Pain scale - at its worst (0-10): 8 Allergies Allergy/AdvReac Type Severity Reaction Status Date / Time Penicillins Allergy Severe Anaphylaxis Verified 04/29/20 05:31 Home Medications Medication Instructions Recorded Confirmed Type Control 1 tab PO DAILY 03/12/20 04/29/20 History aspirin [Aspirin Low-Strength] 81 mg PO QAM 03/12/20 04/29/20 History buprenorphine HCl 8 mg SUBLINGUAL TID 03/12/20 04/29/20 History cholecalciferol (vitamin D3) 2,000 unit PO QAM 03/12/20 04/29/20 History [Vitamin D3] duloxetine [Cymbalta] 60 mg PO QAM 03/12/20 04/29/20 History furosemide [Lasix] 20 - 40 mg PO DAILY PRN 03/12/20 04/29/20 History gabapentin 300 mg PO QID 03/12/20 03/12/20 History hydrochlorothiazide 25 mg PO QAM 03/12/20 04/29/20 History lisinopril 40 mg PO QAM 03/12/20 03/12/20 History methocarbamol [Robaxin] 750 mg PO QID PRN 03/12/20 03/12/20 History omeprazole 20 mg PO QAM 03/12/20 03/12/20 History potassium chloride 20 meq PO TID 03/12/20 04/29/20 History metoprolol succinate 50 mg PO DAILY 04/29/20 04/29/20 History oxycodone-acetaminophen [Percocet] 1 tab PO Q4H PRN 04/29/20 04/29/20 History Pain History Pain Intensity Pain scale - at its best (0-10): 4 Pain scale - at its worst (0-10): 8 Patient History Medical History Chronic back pain Degenerative disc disease DVT (deep venous thrombosis) remote hx at age 18 after traumatic injury Fibromyalgia GERD (gastroesophageal reflux disease) Hypertension Obesity Osteoarthritis Peptic ulcer disease hx Peripheral neuropathy Surgical History History of adenoidectomy History of breast augmentation History of knee surgery right knee reconstruction History of open reduction and internal fixation (ORIF) procedure right tibia History of tonsillectomy S/P bunionectomy left S/P cervical spinal fusion ACDF (unsure of levels, possibly C3-C6), mild ROM limitations (specifically flexion) S/P foot surgery, left fusion with hardware (for foot fracture) during the bunionectomy surgery S/P foot surgery, left to repair a Myles Fracture with various hardware S/P foot surgery, right Pes planus repair (+ hardware) S/P lumbar spinal fusion Social History Smoking Status: Current every day smoker (10 CIGARETTES/DAY FOR MORE THAN 30 YEARS) Cigarettes Per Day: 10 (intermittent tobacco use x 4 years); Second Hand Exposure: Yes; Do You Dip or Chew Tobacco: No; Tobacco Cessation Education Requested by Patient: No Hx Alcohol Use: No Hx Substance Use: No Preferred Language: Senegalese Communication Ability: Effective Sheep Sorter Required: No Beliefs That Will Affect Care: None Current Living Situation: Spouse Other Information That Helps Us Care for You: No Feels Safe at Home: Yes Safety Concerns: Feels Safe At This Time Assistive Devices: Walker Assistive Devices Comment: lower partial Physical Exam Physical Exam: General: Patient lying quietly in exam room in no acute distress. Speech and thought process appropriate. Mood and affect appropriate. Cognition intact. Head: Normocephalic and atraumatic. ENT: No evidence of nasal or oral mucosal lesions. Mucous membranes are moist. Neck: Supple without adenopathy and full range of motion. Chest: Nontender to palpation of the costosternal junction. Abdomen: Soft and nondistended. No organomegaly. Bowel sounds active. Lower extremities: Evidence of a large Yvan wrap present from the mid thigh to the mid foot which was not removed for visual inspection. Patient is able to flex and extend the knee with minimal discomfort with range of motion limitations. Patient is moderately tender to palpation of the gastrocnemius musculature. Sensation is intact distally to sharp and dull. Foot appears to have normal temperature. Capillary refill 1-2 seconds. Dorsalis pedis pulse 2+. Neurologic: Cranial nerves grossly intact. Ambulatory function not witnessed
[2020-04-30] MEDS ORDERED: METOPROLOL SUCC 50MG EXT REL TAB PO SCH (09:00)
[2020-04-30] MEDS ORDERED: hydroCHLOROthiazide 25 MG TAB PO SCH (09:00)
[2020-04-30] MEDS ORDERED: lisinopril 40 MG TAB PO SCH (09:00)
[2020-04-30] MEDS ORDERED: bisacodyL 10 MG SUPP PR PRN (09:21)
[2020-04-30] MEDS ORDERED: MAGNESIUM HYDROXIDE SUSP 30 ML UDC PO PRN (09:21)
[2020-04-30] MEDS ORDERED: NALOXONE HCL 0.4 MG/1 ML VIAL/CARP IV PRN (09:21)
[2020-04-30] MEDS ORDERED: DOCUSATE SODIUM 100 MG CAP PO ONE ×2 (09:27→12:00)
[2020-04-30] MEDS ORDERED: KETOROLAC 30 MG/ML VIAL IV PRN (12:00)
[2020-04-30] MEDS ORDERED: SODIUM CHLORIDE 0.9% 250 ML IV PRN (12:27)
[2020-04-30] MEDS ORDERED: CALCIUM CARBONATE 500 MG CHEWABLE TAB PO PRN (14:56)
--- NOTE | 2020-04-30 15:00 | Hospitalist Progress Note ---
Date of Service April 30, 2020 Assessment & Plan (1) Primary osteoarthritis of right knee: pain control, DVT prophylaxis, d/c planning per ortho pain management consult BMP and electrolytes stable again today Hb down to 7.5, transfuse today will sign off at this time, will follow peripherally, call with any questions (2) Hypotension: BP in 90's systolic feeling a little weak and light headed hold all anti-hypertensives could be due to blood loss, hb down to 7.5 give one unit PRBC today (3) Acute blood loss as cause of postoperative anemia: Hb was 13 pre-op, down to 7.5 today transfuse one unit repeat H/H in the morning (4) Chronic pain: pain management consultation Admission and Anticipated Discharge Date Admission Date: April 29, 2020 Subjective patient with less pain today she is getting PRBC transfusion, Hb dropped to 7.5 this morning, discussed transfusion with ortho, they agreed eating well, breathing well, no chest pain, no fever reviewed BMP, Cr and electrolytes stable Review of Systems Review of Systems: All systems reviewed & are unremarkable except as noted in Subjective Musculoskeletal: + joint pain (right knee) Physical Exam Constitutional: WD/WN, vitals as above comfortable; no acute distress Neck: trachea midline, no thyromegaly Respiratory: normal respiratory effort, lungs clear to auscultation Cardiovascular: RRR, no murmur, no edema Gastrointestinal (Abdomen): normal bowel sounds, soft, nontender, no hepatosplenomegaly Musculoskeletal: Head/Neck/Chest: normocephalic, head atraumatic and neck supple Spine: thoracic spine normal to inspection and lumbar spine normal to inspection Extremities: + limited ROM of extremities and strength 5/5 throughout; + extremities abnormal to inspection (right knee wrapped, drain), no cyanosis, no clubbing and no petechiae Skin: no rashes, warm and dry Neurologic: patellar DTR's 2+ bilat, sensation intact and PERRL, EOMI, accommodation nl, no face palsy, no dysarthria Psychiatric: A+Ox3, euthymic affect Lymphatic: no cervical or axillary lymphadenopathy Results & Data Results & Data ([facility]) Vital Signs (Past 12 Hours) Vital Signs Temp Pulse Pulse Resp BP BP BP 04/30/20 14:53 37.0 C 83 16 100/65 04/30/20 14:26 36.2 C L 85 18 109/73 04/30/20 14:11 36.9 C 82 16 100/61 04/30/20 13:51 36.7 C 89 18 99/65 L 04/30/20 07:50 36.7 C 74 18 101/62 04/30/20 03:59 36.7 C 81 16 92/59 L Pulse Ox 04/30/20 14:53 04/30/20 14:26 94 04/30/20 14:11 95 04/30/20 13:51 04/30/20 07:50 100 04/30/20 03:59 100 Laboratory Results Laboratory Results - last 24 hr 04/29/20 04/29/20 04/29/20 06:14 15:42 15:42 WBC RBC Hgb 9.6 L Hct 29.6 L MCV MCH MCHC RDW Std Deviation RDW Coeff of Tl Plt Count MPV Sodium 141 Potassium 4.1 Chloride 108 H Carbon Dioxide 23 Anion Gap 9.0 BUN 13 Creatinine 1.04 Est Cr Clr Drug Dosing 69.5 Est GFR ( Amer) 71.5 Est GFR (Non-Af Amer) 61.7 BUN/Creatinine Ratio 12.6 Glucose 171 H Calcium 8.7 Blood Type O Positive Antibody Screen NEGATIVE Crossmatch See Detail 04/30/20 04/30/20 05:52 05:52 WBC 11.70 H RBC 2.54 L Hgb 7.5 L Hct 23.1 L MCV 90.9 MCH 29.5 MCHC 32.5 RDW Std Deviation 47.2 H RDW Coeff of Tl 14.1 Plt Count 209 MPV 9.9 Sodium 142 Potassium 4.7 Chloride 110 H Carbon Dioxide 26 Anion Gap 6.0 BUN 16 Creatinine 0.83 Est Cr Clr Drug Dosing 87.1 Est GFR ( Amer) 94.0 Est GFR (Non-Af Amer) 81.1 BUN/Creatinine Ratio 18.7 Glucose 107 H Calcium 8.7 Blood Type Antibody Screen Crossmatch Medications Administered Current Inpatient Medications Acetaminophen (Acetaminophen 500 Mg Tab) 1,000 mg PO Q8 TIFFANIE Stop: 05/29/20 13:59 Last Admin: 04/30/20 14:17 Dose: 1,000 mg Documented by: Aspirin (Aspirin 81 Mg Ectab) 81 mg PO BID TIFFANIE Stop: 05/29/20 20:59 Last Admin: 04/30/20 08:21 Dose: 81 mg Documented by: Bisacodyl (Bisacodyl 10 Mg Supp) 10 mg WA DAILY PRN PRN Reason: Constipation Stop: 05/30/20 09:20 Calcium Carbonate (Calcium Carbonate 500 Mg Chewable Tab) 500 mg PO Q6H PRN PRN Reason: Indigestion Stop: 05/30/20 14:55 Celecoxib (Celebrex 200 Mg Cap) 200 mg PO BID [facility] Stop: 05/29/20 20:59 Docusate Sodium (Docusate Sodium 100 Mg Cap) 100 mg PO BID [facility] Stop: 05/30/20 20:59 Duloxetine HCl (Duloxetine Hcl 60 Mg Cap) 60 mg PO QAM [facility] Stop: 05/30/20 08:59 Last Admin: 04/30/20 08:21 Dose: 60 mg Documented by: Gabapentin (Gabapentin 300 Mg Cap) 300 mg PO QID [facility] Stop: 05/29/20 12:59 Last Admin: 04/30/20 12:02 Dose: 300 mg Documented by: Hydromorphone HCl (Hydromorphone Inj 0.5 Mg/0.5 Ml Syr) 0.5 mg IV Q4H PRN PRN Reason: Pain Stop: 05/13/20 16:50 Last Admin: 04/29/20 21:27 Dose: 0.5 mg Documented by: Sodium Chloride (Nss) 250 mls @ 15 mls/hr IV .[id number] PRN PRN Reason: For Transfusion Stop: 04/30/20 22:28 Ketorolac Tromethamine (Ketorolac 30 Mg/Ml Vial) 30 mg IV Q6H PRN PRN Reason: Pain Stop: 05/04/20 11:59 Magnesium Hydroxide (Magnesium Hydroxide Susp 30 Ml Udc) 30 ml PO Q6H PRN PRN Reason: Constipation Stop: 05/30/20 09:20 Methocarbamol (Methocarbamol 750 Mg Tablet) 750 mg PO QID PRN PRN Reason: muscle spasms Stop: 05/29/20 12:33 Last Admin: 04/30/20 12:02 Dose: 750 mg Documented by: Metoprolol Succinate (Metoprolol Succ 50mg Ext Rel Tab) 50 mg PO DAILY [facility] Stop: 05/30/20 08:59 Miscellaneous (Scopolamine Check Patch Placement) 1 ea N/A QS [facility] Stop: 05/02/20 07:59 Last Admin: 04/30/20 08:21 Dose: Not Given Documented by: Naloxone HCl (Naloxone Hcl 0.4 Mg/1 Ml Vial/Carp) 0.1 mg IV Q5M PRN PRN Reason: Oversedation/Resp Depression Stop: 05/30/20 09:20 Oxycodone HCl (Oxycodone Hcl Ir 5 Mg Tab (Immediate Release)) 5 - 10 mg PO Q4H PRN PRN Reason: Pain Stop: 05/13/20 12:33 Last Admin: 04/30/20 12:03 Dose: 10 mg Documented by: Pantoprazole Sodium (Pantoprazole 40 Mg Tab) 40 mg PO QAM [facility] Stop: 05/30/20 08:59 Last Admin: 04/30/20 08:21 Dose: 40 mg Documented by: Potassium Chloride (Potassium Chloride Crtab 20 Meq Tabcr) 20 meq PO TID [facility] Stop: 05/29/20 13:59 Last Admin: 04/30/20 14:18 Dose: 20 meq Documented by: Vitamin D (Cholecalciferol 1,000 Units 25 Mcg Tab) 2,000 units PO QAM [facility] Stop: 05/30/20 08:59 Last Admin: 04/30/20 08:21 Dose: 2,000 units Documented by: PG Care Time/CCT Total # of Minutes Spent Total Time Spent with Patient: Total time spent is greater than 50% in coordination of care (as documented) at patient's floor/unit and/or counseling patient: Coding Level of Care Code 83141 Subseq Hosp Care Lvl 2 Diagnoses Primary osteoarthritis of right knee M17.11 Hypotension I95.9 Acute blood loss as cause of postoperative anemia D62 Chronic pain G89.29
[2020-04-30] MEDS: CeleBREX 200 MG CAP PO SCH (20:48)
[2020-04-30] MEDS: HYDROmorphone INJ 0.5 MG/0.5 ML SYR IV PRN (20:49)
[2020-04-30] MEDS: DOCUSATE SODIUM 100 MG CAP PO SCH (20:49)
[2020-05-01] MEDS: oxyCODONE HCL IR 5 MG TAB (IMMEDIATE RELEASE) PO PRN ×4 (01:24→13:12)
[2020-05-01] MEDS: ACETAMINOPHEN 500 MG TAB PO SCH ×2 (05:29→13:16)
[2020-05-01 05:39] LABS: Basophils # (auto) 0.02 K/uL (0-0.2); Basophils % (auto) 0.2 %; Eosinophils # (auto) 0.15 K/uL (0-0.5); Eosinophils % (auto) 1.9 %; Hematocrit (blood only) 24.5 % (37-47); Immature Granulocytes # (auto) 0.02 K/uL (0.00-0.02); Immature Granulocytes % (auto) 0.2 %; Lymphocytes # (auto) 3.13 K/uL (1.2-3.4); Lymphocytes % (auto) 38.9 %; Mean Corpuscular Hemoglobin 29.2 pg (25-34); Mean Corpuscular Hgb Conc 32.7 g/dL (32-36); Mean Corpuscular Volume 89.4 fL (80-100); Mean Platelet Volume 9.8 fL (7.4-10.4); Monocytes # (auto) 0.35 K/uL (0.11-0.59); Monocytes % (auto) 4.3 %; Neutrophils # (auto) 4.38 K/uL (1.4-6.5); Neutrophils % (auto) 54.5 %; Platelet Count 191 K/uL (130-400); RDW Coefficient of Variation 15.4 % (11.5-14.5); RDW Standard Deviation 50.3 fL (36.4-46.3); Red Blood Count 2.74 M/uL (4.2-5.4); White Blood Count 8.05 K/uL (4.8-10.8)
--- NOTE | 2020-05-01 07:17 | Orthopedic Progress Note ---
Date of Service May 01, 2020 Assessment & Plan (1) Primary osteoarthritis of right knee: POD#1 right TKA -PT/OT -Pain management-having a lot of pain. Was on chronic pain medication preop. Will get pain management consult for recommendations for post op pain control. -DVT prophylaxis-ASA 81mg BID, SCDs, TEDs -AM labs-Hemoglobin 8 this morning up from 7.5 yesterday-acute blood loss anemia due to surgical loss and dilutional effect. Transfused 1 u of PRBC yesterday. Feeling better, asymptomatic today. Will recheck CBC next week. -D/C planning-home with home health PT when stable. Will see how she does with PT today. As long as does well plan for discharge today. Admission and Anticipated Discharge Date Admission Date: April 29, 2020 Subjective Patient resting in bed. Feeling better this morning. Dizziness has resolved. Received 1u of blood yesterday. Had some dizziness with therapy yesterday. Pain better controlled. BP has normalized. Review of Systems Review of Systems: All systems reviewed & are unremarkable except as noted in HPI & below Physical Exam Physical Exam: Right leg dressing is c/d/i. ELISHA in place and suctioning, hemovac intact. Toes are mobile with good dorsiflexion. Mild calf tenderness. Distally n/v status and sensation are intact. Constitutional: well developed and well nourished; no acute distress Results & Data ([facility]) Vital Signs (Past 12 Hours) Vital Signs Temp Pulse Resp BP Pulse Ox 04/30/20 23:36 37 C 89 16 111/70 94 Laboratory Results H & H 04/03/20 04/29/20 04/30/20 Range/Units 14:02 15:42 05:52 Hgb 13.4 9.6 L 7.5 L (12.0-16.0) g/dL Hct 40.2 29.6 L 23.1 L (37-47) % 05/01/20 Range/Units 05:23 Hgb 8.0 L (12.0-16.0) g/dL Hct 24.5 L (37-47) % Coagulation 04/03/20 Range/Units 14:02 INR 1.0 (0.9-1.1)
[2020-05-01] MEDS: Scopolamine CHECK PATCH PLACEMENT SCH (07:22)
[2020-05-01] MEDS: GABAPENTIN 300 MG CAP PO SCH ×2 (08:29→13:11)
[2020-05-01] MEDS: CeleBREX 200 MG CAP PO SCH (08:29)
[2020-05-01] MEDS: PANTOprazole 40 MG TAB PO SCH (08:30)
[2020-05-01] MEDS: DOCUSATE SODIUM 100 MG CAP PO SCH (08:30)
[2020-05-01] MEDS: DULoxetine HCL 60 MG CAP PO SCH (08:30)
[2020-05-01] MEDS: ASPIRIN 81 MG ECTAB PO SCH (08:30)
[2020-05-01] MEDS: CHOLECALCIFEROL 1,000 UNITS 25 MCG TAB PO SCH (08:30)
[2020-05-01] MEDS: POTASSIUM CHLORIDE CRTAB 20 MEQ TABCR PO SCH ×2 (08:31→13:12)
--- NOTE | 2020-05-02 08:49 | Discharge Summary ---
Date of Service May 02, 2020 Admission HPI Per Admitting Provider 54yo female with PMHx significant for HTN, GERD, every day smoker, and chronic pain on chronic narcotic pain medication who presents with longstanding right knee pain and severe osteoarthritis. Pain is interfering with her ability to carry out daily activities. She has difficulty ambulating and is falling due to her knee pain. She has failed conservative measures including oral and topical NSAIDs, viscoelastic injections, and cortisone injections, knee bracing, and therapy. She would like to proceed with knee replacement. Patient denies headaches, sweats, fevers, chills, double vision, blurred vision, cough, sore throat, dysphagia, chest pain, sob, wheezing, n/v/d/c, numbness, tingling, fatigue, urinary symptoms, mood disorders. ROS positive for right knee pain and stiffness. Admission Exam Per Admitting Provider Constitutional: well developed and well nourished; no acute distress Eyes: PERRL, conjunctivae normal, anicteric sclerae ENMT: external ear and nose normal, oropharynx normal Neck: trachea midline, no thyromegaly Respiratory: normal respiratory effort, lungs clear to auscultation Cardiovascular: RRR, no murmur, no edema Musculoskeletal: Right knee: Valgus alignment with tenderness lateral joint line, mild effusion. Positive valgus stress, positive Saud's, positive tiana's. ROM 0-90 degrees. Varus stress does correct deformity. Crepitation noted with ROM. Skin: no rashes, warm and dry Neurologic: patellar DTR's 2+ bilat, sensation intact Psychiatric: A+Ox3, euthymic affect Principal Diagnosis Right knee osteoarthritis, acute blood loss anemia Discharge Exam Constitutional well developed and well nourished; no acute distress Eyes PERRL, conjunctivae normal, anicteric sclerae ENMT external ear and nose normal, oropharynx normal Neck trachea midline, no thyromegaly Respiratory normal respiratory effort, lungs clear to auscultation Cardiovascular RRR, no murmur, no edema Skin no rashes, warm and dry Neurologic patellar DTR's 2+ bilat, sensation intact Psychiatric A+Ox3, euthymic affect Discharge Data Allergies Allergy/AdvReac Type Severity Reaction Status Date / Time Penicillins Allergy Severe Anaphylaxis Verified 04/29/20 05:31 Consultations 04/24/20 17:55 Consult Hospitalist Routine 04/29/20 12:34 Consult Case Management - Discharge Planning Routine 04/29/20 18:41 Consult Pain Management Routine Procedures Performed Operation Date: 04/29/20 07:00 Actual Procedures p Right Total Knee Arthroplasty(Right) - Ruel Posada MD Ordered Studies 04/29/20 05:00 US - OR guided needle placemen Routine Hospital Course (1) Primary osteoarthritis of right knee: Patient presented for same day admission following right total knee arthroplasty on 04/29/20. She tolerated procedure well. Post-operatively, her activity was progressed and well tolerated. On POD#1 she had a hemoglobin of 7.5 and received 1 unit of PRBC. She did have some hypotension and dizziness, resolved by POD#2. Hemoglobin was 8 on POD#2. They participated in PT with ambulation distance of 100 feet. ROM of operative knee reached 96 degrees. Labs remained stable- lowest hemoglobin recorded: 7.5. Dr. Anibal Cortez of medical service was consulted for medical management during admission. Pain management consult was also placed due to patient's history of chronic opioid use. Pain controlled on oral medications. Please refer to daily progress notes and PT notes for complete details. After exam on 05/01/20, patient was felt to be stable for discharge home with home health PT. Patient will f/u in the office in about 2 weeks for further evaluation including x-rays and incision check, sooner if having any issues or concerns. POD#2 TKA -PT/OT -Pain management-having a lot of pain. Was on chronic pain medication preop. Will get pain management consult for recommendations for post op pain control. -DVT prophylaxis-ASA 81mg BID, SCDs, TEDs -AM labs-Hemoglobin 8 this morning up from 7.5 yesterday-acute blood loss anemia due to surgical loss and dilutional effect. Transfused 1 u of PRBC yesterday. Feeling better, asymptomatic today. Will recheck CBC next week. -D/C planning-home with home health PT when stable. Will see how she does with PT today. As long as does well plan for discharge today. Lab Results 04/03/20 04/03/20 04/03/20 Range/Units 14:02 14:02 14:02 WBC 8.72 (4.8-10.8) K/uL RBC 4.43 (4.2-5.4) M/uL Hgb 13.4 (12.0-16.0) g/dL Hct 40.2 (37-47) % MCV 90.7 (80-100) fL MCH 30.2 (25-34) pg MCHC 33.3 (32-36) g/dL RDW Std Deviation 46.4 H (36.4-46.3) fL RDW Coeff of Tl 14.0 (11.5-14.5) % Plt Count 334 (130-400) K/uL MPV 10.3 (7.4-10.4) fL Immature Gran % (Auto) 0.1 % Neut % (Auto) 59.2 % Lymph % (Auto) 32.9 % Crisp % (Auto) 5.0 % Eos % (Auto) 2.3 % Baso % (Auto) 0.5 % Neut # (Auto) 5.16 (1.4-6.5) K/uL Lymph # (Auto) 2.87 (1.2-3.4) K/uL Crisp # (Auto) 0.44 (0.11-0.59) K/uL Eos # (Auto) 0.20 (0-0.5) K/uL Baso # (Auto) 0.04 (0-0.2) K/uL Immature Gran # (Auto) 0.01 (0.00-0.02) K/uL PT 10.1 (9.0-12.0) Seconds INR 1.0 (0.9-1.1) APTT 31.0 (21.0-31.0) Seconds PTT Ratio 1.1 Sodium 137 (136-145) mmol/L Potassium 3.4 L (3.5-5.1) mmol/L Chloride 99 (98-107) mmol/L Carbon Dioxide 37 H (21-32) mmol/L Anion Gap 1.0 L (3-11) BUN 15 (7-18) mg/dl Creatinine 0.94 (0.6-1.2) mg/dl Est Cr Clr Drug Dosing 76.9 ml/min Est GFR ( Amer) 80.8 Est GFR (Non-Af Amer) 69.8 BUN/Creatinine Ratio 16.2 (10-20) Glucose 90 (70-99) mg/dl Estimat Average Glucose mg/dl Hemoglobin A1c (4.5-5.6) % Calcium 9.1 (8.5-10.1) mg/dl Albumin 4.1 (3.4-5.0) gm/dl Urine Color Urine Appearance (Clear) Urine pH (4.5-7.5) Ur Specific [place] (1.000-1.030) Urine Protein (Negative) Urine Glucose (UA) (Negative) Urine Ketones (Negative) Urine Blood (Negative) Urine Nitrite (Negative) Urine Bilirubin (Negative) Urine Urobilinogen (Negative) Ur Leukocyte Esterase (Negative) Urine WBC (Auto) (0-5) /hpf Urine RBC (Auto) (0-4) /hpf U Hyaline Cast (Auto) (0-5) /lpf U Epithel Cells (Auto) (0-5) /lpf Urine Bacteria (Auto) (Negative) Blood Type Antibody Screen Crossmatch 04/03/20 04/03/20 04/03/20 Range/Units 14:02 14:02 14:02 WBC (4.8-10.8) K/uL RBC (4.2-5.4) M/uL Hgb (12.0-16.0) g/dL Hct (37-47) % MCV (80-100) fL MCH (25-34) pg MCHC (32-36) g/dL RDW Std Deviation (36.4-46.3) fL RDW Coeff of Tl (11.5-14.5) % Plt Count (130-400) K/uL MPV (7.4-10.4) fL Immature Gran % (Auto) % Neut % (Auto) % Lymph % (Auto) % Crisp % (Auto) % Eos % (Auto) % Baso % (Auto) % Neut # (Auto) (1.4-6.5) K/uL Lymph # (Auto) (1.2-3.4) K/uL Crisp # (Auto) (0.11-0.59) K/uL Eos # (Auto) (0-0.5) K/uL Baso # (Auto) (0-0.2) K/uL Immature Gran # (Auto) (0.00-0.02) K/uL PT (9.0-12.0) Seconds INR (0.9-1.1) APTT (21.0-31.0) Seconds PTT Ratio Sodium (136-145) mmol/L Potassium (3.5-5.1) mmol/L Chloride (98-107) mmol/L Carbon Dioxide (21-32) mmol/L Anion Gap (3-11) BUN (7-18) mg/dl Creatinine (0.6-1.2) mg/dl Est Cr Clr Drug Dosing ml/min Est GFR ( Amer) Est GFR (Non-Af Amer) BUN/Creatinine Ratio (10-20) Glucose (70-99) mg/dl Estimat Average Glucose 128 mg/dl Hemoglobin A1c 6.1 H (4.5-5.6) % Calcium (8.5-10.1) mg/dl Albumin (3.4-5.0) gm/dl Urine Color Yellow Urine Appearance Clear (Clear) Urine pH 6.5 (4.5-7.5) Ur Specific [place] 1.014 (1.000-1.030) Urine Protein Negative (Negative) Urine Glucose (UA) Negative (Negative) Urine Ketones Negative (Negative) Urine Blood Trace H (Negative) Urine Nitrite Negative (Negative) Urine Bilirubin Negative (Negative) Urine Urobilinogen Negative (Negative) Ur Leukocyte Esterase Negative (Negative) Urine WBC (Auto) 1-5 (0-5) /hpf Urine RBC (Auto) 5-10 H (0-4) /hpf U Hyaline Cast (Auto) 1-5 (0-5) /lpf U Epithel Cells (Auto) 10-20 H (0-5) /lpf Urine Bacteria (Auto) Negative (Negative) Blood Type O Positive Antibody Screen NEGATIVE Crossmatch 04/29/20 04/29/20 04/29/20 Range/Units 06:14 15:42 15:42 WBC (4.8-10.8) K/uL RBC (4.2-5.4) M/uL Hgb 9.6 L (12.0-16.0) g/dL Hct 29.6 L (37-47) % MCV (80-100) fL MCH (25-34) pg MCHC (32-36) g/dL RDW Std Deviation (36.4-46.3) fL RDW Coeff of Tl (11.5-14.5) % Plt Count (130-400) K/uL MPV (7.4-10.4) fL Immature Gran % (Auto) % Neut % (Auto) % Lymph % (Auto) % Crisp % (Auto) % Eos % (Auto) % Baso % (Auto) % Neut # (Auto) (1.4-6.5) K/uL Lymph # (Auto) (1.2-3.4) K/uL Crisp # (Auto) (0.11-0.59) K/uL Eos # (Auto) (0-0.5) K/uL Baso # (Auto) (0-0.2) K/uL Immature Gran # (Auto) (0.00-0.02) K/uL PT (9.0-12.0) Seconds INR (0.9-1.1) APTT (21.0-31.0) Seconds PTT Ratio Sodium 141 (136-145) mmol/L Potassium 4.1 (3.5-5.1) mmol/L Chloride 108 H (98-107) mmol/L Carbon Dioxide 23 (21-32) mmol/L Anion Gap 9.0 (3-11) BUN 13 (7-18) mg/dl Creatinine 1.04 (0.6-1.2) mg/dl Est Cr Clr Drug Dosing 69.5 ml/min Est GFR ( Amer) 71.5 Est GFR (Non-Af Amer) 61.7 BUN/Creatinine Ratio 12.6 (10-20) Glucose 171 H (70-99) mg/dl Estimat Average Glucose mg/dl Hemoglobin A1c (4.5-5.6) % Calcium 8.7 (8.5-10.1) mg/dl Albumin (3.4-5.0) gm/dl Urine Color Urine Appearance (Clear) Urine pH (4.5-7.5) Ur Specific [place] (1.000-1.030) Urine Protein (Negative) Urine Glucose (UA) (Negative) Urine Ketones (Negative) Urine Blood (Negative) Urine Nitrite (Negative) Urine Bilirubin (Negative) Urine Urobilinogen (Negative) Ur Leukocyte Esterase (Negative) Urine WBC (Auto) (0-5) /hpf Urine RBC (Auto) (0-4) /hpf U Hyaline Cast (Auto) (0-5) /lpf U Epithel Cells (Auto) (0-5) /lpf Urine Bacteria (Auto) (Negative) Blood Type O Positive Antibody Screen NEGATIVE Crossmatch See Detail 04/30/20 04/30/20 05/01/20 Range/Units 05:52 05:52 05:23 WBC 11.70 H 8.05 (4.8-10.8) K/uL RBC 2.54 L 2.74 L (4.2-5.4) M/uL Hgb 7.5 L 8.0 L (12.0-16.0) g/dL Hct 23.1 L 24.5 L (37-47) % MCV 90.9 89.4 (80-100) fL MCH 29.5 29.2 (25-34) pg MCHC 32.5 32.7 (32-36) g/dL RDW Std Deviation 47.2 H 50.3 H (36.4-46.3) fL RDW Coeff of Tl 14.1 15.4 H (11.5-14.5) % Plt Count 209 191 (130-400) K/uL MPV 9.9 9.8 (7.4-10.4) fL Immature Gran % (Auto) 0.2 % Neut % (Auto) 54.5 % Lymph % (Auto) 38.9 % Crisp % (Auto) 4.3 % Eos % (Auto) 1.9 % Baso % (Auto) 0.2 % Neut # (Auto) 4.38 (1.4-6.5) K/uL Lymph # (Auto) 3.13 (1.2-3.4) K/uL Crisp # (Auto) 0.35 (0.11-0.59) K/uL Eos # (Auto) 0.15 (0-0.5) K/uL Baso # (Auto) 0.02 (0-0.2) K/uL Immature Gran # (Auto) 0.02 (0.00-0.02) K/uL PT (9.0-12.0) Seconds INR (0.9-1.1) APTT (21.0-31.0) Seconds PTT Ratio Sodium 142 (136-145) mmol/L Potassium 4.7 (3.5-5.1) mmol/L Chloride 110 H (98-107) mmol/L Carbon Dioxide 26 (21-32) mmol/L Anion Gap 6.0 (3-11) BUN 16 (7-18) mg/dl Creatinine 0.83 (0.6-1.2) mg/dl Est Cr Clr Drug Dosing 87.1 ml/min Est GFR ( Amer) 94.0 Est GFR (Non-Af Amer) 81.1 BUN/Creatinine Ratio 18.7 (10-20) Glucose 107 H (70-99) mg/dl Estimat Average Glucose mg/dl Hemoglobin A1c (4.5-5.6) % Calcium 8.7 (8.5-10.1) mg/dl Albumin (3.4-5.0) gm/dl Urine Color Urine Appearance (Clear) Urine pH (4.5-7.5) Ur Specific [place] (1.000-1.030) Urine Protein (Negative) Urine Glucose (UA) (Negative) Urine Ketones (Negative) Urine Blood (Negative) Urine Nitrite (Negative) Urine Bilirubin (Negative) Urine Urobilinogen (Negative) Ur Leukocyte Esterase (Negative) Urine WBC (Auto) (0-5) /hpf Urine RBC (Auto) (0-4) /hpf U Hyaline Cast (Auto) (0-5) /lpf U Epithel Cells (Auto) (0-5) /lpf Urine Bacteria (Auto) (Negative) Blood Type Antibody Screen Crossmatch Total Time Total Time Spent Total Time Spent (In Minutes): 20 Discharge Plan Discharge Items Patient Disposition: Home - Home Health Services Reason For Visit: Unilateral Primary Osteoarthritis, Right Knee Discharge Diagnosis: Right knee osteoarthritis, acute blood loss anemia Activity: Per Instructions section Non-emergency contact: Surgeon Call non-emergency contact if: you have any medication questions, your pain is not controlled, your pain is worsening, your pain is concerning for you, you have a fever, your temperature is above 101, your wound has increased redness, your wound has increased drainage and your wound pain has increased Follow-up/Referrals: PCP,NO [Primary Care Provider] - Diet: Regular Addtl Attending Provider Instructions: ACTIVITY RECOMMENDATIONS: SELF CARE INSTRUCTIONS AFTER TOTAL KNEE REPLACEMENT A. You may need to continue a physical therapy program after discharge from the hospital. There are several options available to you. Your doctor will assist you in selecting the best one for you. 1. An out-patient facility 2 to 3 times a week for therapy or home therapy. 2. Continue working on all exercises taught to you in the hospital. Your goals should be to increase bending of your knee to 90 degrees and beyond and to fully straighten your knee. B. You may progress at your own pace from walking with a walker or crutches to a cane; then to no assistive devices. C. Make walking a part of your daily routine. Be up as much as comfortable with rest periods throughout the day. Rest with leg elevation is very important. Use the ice wrap frequently for the first 3-4 weeks. D. There are no restrictions on activities. You may ride in a car, shop, participate in mycology teacher and all social activities. E. Wear the long elastic stockings (ANA M hose) 20 hours a day for 2 weeks after surgery. They can be removed several times a day for laundering and for a bath. F. You may shower, no tub baths until cleared by your doctor. SPECIAL CARE INSTRUCTIONS: VERY IMPORTANT TO READ AND REVIEW A. There are a few signs you need to watch for after you are home. Call [facility] [place] if you notice any of the followin. Increased severe knee pain. Some pain is expected especially when you exercise. 2. Increased swelling in your leg or knee; pain or swelling of the calf muscle in either lower leg. 3. Any fluid drainage from the incision. 4. Shortness of breath or chest pain. B. Please call [facility] [place] at if you have any concerns or questions about your operation or recovery. The doctor or his nurse will return your call promptly. C. You must take antibiotics before dental work, bladder, bowel or other surgery. Your doctor will provide you with a permanent care to carry describing this precaution. IMPORTANT: * REMEMBER TO TAKE ASPIRIN, 81 MG, TWICE DAILY FOR 4 WEEKS UNLESS OTHERWISE DIRECTED. THIS IS YOUR BLOOD THINNER. * HIGH RISK PATIENTS MAY BE PRESCRIBED A STRONGER BLOOD THINNER. THIS WILL BE PROVIDED AT DISCHARGE. * CALL IF INCREASED PAIN, REDNESS, DRAINAGE OR FEVER GREATER THAT 101. * WEAR ANA M HOSE 20 HOURS PER DAY FOR 2 WEEKS. * This is a large suction dressing covering your incision. This will help pull any excess drainage from the wound and allow your incision to heal properly. You may shower with this if you can keep the unit outside of the shower. If any bleeding or leakage is noted please call your doctor's office. This will remain on your incision for 7 days and then should be removed. This can be done yourself or by the home nursing staff if applicable. The entire unit is disposable once removed. Once removed, keep incision clean and dry. If redness or drainage is noted, please call your surgeon. *We would like to check a CBC next week to recheck your hemoglobin levels. FOLLOW UP VISIT: If appointment is not already scheduled: Please call [facility] [place] to make a follow-up appointment for 2 weeks after your surgery at . Stand-Alone Forms: My [facility], Smoking Cessation Medications and DC Order Prescriptions: New celecoxib [Celebrex] 200 mg Capsule 200 mg PO BID Qty: 60 RF: 0 aspirin 81 mg Tablet,Delayed Release (Dr/Ec) 81 mg PO BID Qty: 60 RF: 0 acetaminophen 500 mg Tablet 1,000 mg PO Q8 Qty: 60 RF: 0 docusate sodium 100 mg Capsule 100 mg PO BID Qty: 30 RF: 0 oxycodone 10 mg tablet 10 mg PO Q4H PRN (Reason: pain) Qty: 30 RF: 0 naloxone 4 mg/actuation spray,non-aerosol 1 spray intranasal Q3M PRN (Reason: opioid overdose) Qty: 2 RF: 0 ferrous sulfate 325 mg (65 mg iron) tablet 325 mg PO BID Qty: 30 RF: 0 Continued methocarbamol 750 mg Tablet 750 mg PO QID PRN (Reason: muscle spasms) RF: 0 gabapentin 300 mg Capsule 300 mg PO QID RF: 0 hydrochlorothiazide 25 mg Tablet 25 mg PO QAM RF: 0 furosemide [Lasix] 20 mg Tablet 20 - 40 mg PO DAILY PRN (Reason: leg swelling) RF: 0 lisinopril 40 mg Tablet 40 mg PO QAM RF: 0 cholecalciferol (vitamin D3) [Vitamin D3] 50 mcg (2,000 unit) Capsule 2,000 unit PO QAM RF: 0 duloxetine [Cymbalta] 60 mg Capsule,Delayed Release(Dr/Ec) 60 mg PO QAM RF: 0 omeprazole 20 mg Capsule,Delayed Release(Dr/Ec) 20 mg PO QAM RF: 0 potassium chloride 20 mEq Tablet Extended Release 20 meq PO TID RF: 0 Control 1 tab PO DAILY RF: 0 metoprolol succinate 50 mg Tablet Extended Release 24 Hr 50 mg PO DAILY RF: 0 Discontinued buprenorphine HCl 8 mg Tablet, Sublingual 8 mg SUBLINGUAL TID RF: 0 aspirin [Aspirin Low-Strength] 81 mg Tablet,Delayed Release (Dr/Ec) 81 mg PO QAM RF: 0 oxycodone-acetaminophen [Percocet] 10-325 mg Tablet 1 tab PO Q4H PRN (Reason: Pain) RF: 0 Discharge Orders: Discharge Order (Routine); Ordered 05/01/20 Ordered By: Lance La/Other Patient Handouts: 5 Steps for Eating Healthier, A1C Admission Data Admit Date/Time: 04/29/20 09:54 Attending Provider: Ruel Posada Admit Provider: Ruel Posada Primary Care Provider: PCP,NO Other Providers: Anibal Cortez ; Mike Andrade Other Interventions: Discharge Summary Assessment (RN) Last Done: 05/01/20 09:25
== END 2020-05-01 13:56 | disposition home health service (06) | DRG 470 ==
LOC: PAT 05:14 → 3E 05:14 → OBSVTOIN 09:54
DX: I10 Essential (primary) hypertension; K21.9 Gastro-esophageal reflux disease without esophagitis; M17.11 Unilateral primary osteoarthritis, right knee; G89.29 Other chronic pain; F17.200 Nicotine dependence, unspecified, uncomplicated; D62 Acute posthemorrhagic anemia; Z79.3 Long term (current) use of hormonal contraceptives; F11.20 Opioid dependence, uncomplicated; M25.761 Osteophyte, right knee; Z79.82 Long term (current) use of aspirin; I95.9 Hypotension, unspecified; Z79.899 Other long term (current) drug therapy